=== PATIENT | female | born 1935 | race Caucasian/White ===

== ENCOUNTER 2017-02-21 12:21 | Observation (INO) | payer OTHER ==
[~2017-02-21] VITALS: Ht 142.2 cm; Wt 60.4 kg
[~2017-02-21 12:21] MED LIST: BACLOFEN10 MG; BACLOFEN10 MG PO; CRESTOR5 MG; FLORASTOR250 MG PO; HYDROCODON-ACE1 EACH; METOPROLOL SUCC50 MG; METOPROLOL SUCC50 MG PO; NITROFURANTOIN100 M3 PO; PANTOPRAZOLE SO40 MG PO; ZANTAC 7575 MG PO
[2017-02-21 13:13] LABS: HEMATOCRIT 32.3 % (36.0-46.0); MCH 32.7 PG (29.0-34.0); MCHC 33.1 G/DL (30.0-36.0); MCV 98.8 FL (83-99); MEAN PLAT.VOLUME 11.6 uM^3 (9.5-12.4); NRBC (%) 0.5 /100 WBC (0-0); PLATELET COUNT 285 K/uL (156-360); RBC DIS.WIDTH-CV 16.2 % (11.8-14.6); RBC DIS.WIDTH-SD 58.4 % (39-53); RED BLOOD COUNT 3.27 M/uL (3.80-5.20)
[2017-02-21 13:23] LABS: CHLORIDE 103 mEq/L (99-109); POTASSIUM 3.9 mEq/L (3.7-5.4); SODIUM 139 mEq/L (136-147)
[2017-02-21 13:25] LABS: GLUCOSE 155 mg/dL (70-99)
[2017-02-21 13:26] LABS: ANION GAP 9 MEQ/L (2-14)
[2017-02-21 13:27] LABS: TOTAL BILIRUBIN 0.6 mg/dL (0.0-1.0)
[2017-02-21 13:28] LABS: ALKALINE PHOSPHATASE 54 IU/L (3-129)
[2017-02-21 13:29] LABS: GFR ESTIMATE (CALCULATED) > 59 mL/min/
[2017-02-21 13:30] LABS: UREA NITROGEN (BUN) 14 mg/dL (9-23)
[2017-02-21 15:34] LABS: ADD MIUA? YES; BILIRUBIN NEGATIVE; BLOOD NEGATIVE; COLOR YELLOW ((YELLOW)); GLUCOSE (STRIP) NEGATIVE; KETONES NEGATIVE; LEUKOCYTES TRACE; NITRITE NEGATIVE; PROTEIN (STRIP) NEGATIVE; SPECIFIC GRAVITY 1.023 (1.000-1.030); UROBILINOGEN 0.2 MG/DL (0.2-1.0)
[2017-02-21 15:37] LABS: TROP-I INTERPRETATION NEGATIVE; TROPONIN-I < 0.01 ng/mL (0.0-0.30)
[2017-02-21 15:53] LABS: BACTERIA RARE /HPF; EPITHELIAL CELLS RARE /HPF; HYALINE CASTS 0-5 /LPF; MUCUS 3+ /LPF; RED BLOOD CELLS 0-5 /HPF (0-5); UCUL ADDED? NO; WHITE BLOOD CELLS 0-5 /HPF (0-5)
[2017-02-21] MEDS ORDERED: FOLIC ACID1 MG PO (18:27)
[2017-02-21] MEDS ORDERED: B-121000 MC2 PO (18:28)
[2017-02-21] MEDS ORDERED: PROBIOTIC1 EAC2 PO (18:29)
[2017-02-21] MEDS ORDERED: HYDROCODON-ACE1 EAC8 PO (18:30)
[2017-02-21] MEDS ORDERED: ZANTAC300 MG PO (18:30)
[2017-02-21] MEDS ORDERED: KLONOPIN0.5 M1 PO (18:30)
[2017-02-21] MEDS ORDERED: VITAMIN D22000 UNIT PO (18:31)
[2017-02-21] MEDS ORDERED: CALTRATE PLUS1 EACH PO (18:31)
[2017-02-21 18:51] LABS: TROP-I INTERPRETATION NEGATIVE; TROPONIN-I < 0.01 ng/mL (0.0-0.30)
[2017-02-21 21:00] VITALS: BP 189/75
[2017-02-22 00:41] VITALS: BP 146/69
[2017-02-22 01:28] LABS: TROP-I INTERPRETATION NEGATIVE; TROPONIN-I < 0.01 ng/mL (0.0-0.30)
[2017-02-22 04:30] VITALS: BP 110/56
[2017-02-22 05:55] LABS: HEMATOCRIT 29.9 % (36.0-46.0); MCH 33.7 PG (29.0-34.0); MCHC 33.8 G/DL (30.0-36.0); MCV 99.7 FL (83-99); MEAN PLAT.VOLUME 11.5 uM^3 (9.5-12.4); NRBC (%) 0.3 /100 WBC (0-0); PLATELET COUNT 271 K/uL (156-360); RBC DIS.WIDTH-CV 16.6 % (11.8-14.6); RBC DIS.WIDTH-SD 59.7 % (39-53); WHITE BLOOD COUNT 6.6 K/uL (4.1-10.2)
[2017-02-22 06:27] LABS: ALKALINE PHOSPHATASE 44 IU/L (3-129); ANION GAP 7 MEQ/L (2-14); CHLORIDE 105 MEQ/L (99-109); GFR ESTIMATE (CALCULATED) > 59 mL/min/; POTASSIUM 4.1 MEQ/L (3.7-5.4); SAMPLE HEMOLYSIS CHECK 0; SAMPLE ICTERIC CHECK 0; SAMPLE LIPEMIA CHECK 0; SODIUM 141 MEQ/L (136-147); TOTAL BILIRUBIN 0.6 MG/DL (0.0-1.0); UREA NITROGEN (BUN) 11 mg/dL (9-23)
[2017-02-22 06:32] LABS: GLUCOSE 99 mg/dL (70-99)
[2017-02-22 09:00] VITALS: BP 151/74
== END 2017-02-22 10:46 | disposition home or self-care (01) ==
LOC: EME 12:21 → 5WEST 19:39 → EDOF 19:39 → ENRESERV 19:46 → 5WEST 20:48
PROVIDERS: Internal Medicine; Physician Assistant
DX: R10.32 Left lower quadrant pain (principal); R07.89 Other chest pain; K57.30 Diverticulosis of large intestine without perforation or abscess without bleeding; I10 Essential (primary) hypertension; G89.29 Other chronic pain; M54.5 Low back pain; K44.9 Diaphragmatic hernia without obstruction or gangrene; M19.90 Unspecified osteoarthritis, unspecified site; Z87.891 Personal history of nicotine dependence; D46.9 Myelodysplastic syndrome, unspecified; E11.9 Type 2 diabetes mellitus without complications; G25.0 Essential tremor; K21.9 Gastro-esophageal reflux disease without esophagitis; E78.5 Hyperlipidemia, unspecified; Z82.49 Family history of ischemic heart disease and other diseases of the circulatory system; Z88.0 Allergy status to penicillin; Z88.8 Allergy status to other drugs, medicaments and biological substances; Z91.09 Other allergy status, other than to drugs and biological substances
CPT/HCPCS: 71275; 74174; 80053; 81003; 84484; 85027; 93005; 99281; 99285; G0378; J1644; J7030

== ENCOUNTER 2017-12-17 20:01 | Inpatient (IN) | payer OTHER ==
[~2017-12-17] VITALS: Ht 142.2 cm; Wt 50.2 kg
[~2017-12-17 20:01] MED LIST changes: +B-121000 MC2 PO; +CALTRATE PLUS1 EACH PO; +FOLIC ACID1 MG PO; +HYDROCODON-ACE1 EAC8 PO; +KLONOPIN0.5 M1 PO; +PROBIOTIC1 EAC2 PO; +VITAMIN D22000 UNIT PO; +ZANTAC300 MG PO
[2017-12-17 20:53] LABS: BASOPHIL (%) 0.6 % (0-1); EOSINOPHIL (%) 2.5 % (0-5); EOSINOPHIL COUNT 0.2 K/uL (0-0.3); HEMATOCRIT 30.5 % (36.0-46.0); HEMOGLOBIN 10.6 G/DL (11.9-15.5); IMMATURE GRANULOCYTE (%) 0.3 % (0.0-0.7); LYMPHOCYTE (%) 24.6 % (15-42); LYMPHOCYTE COUNT 1.8 K/uL (1.0-2.8); MCH 33.9 PG (29.0-34.0); MCHC 34.8 G/DL (30.0-36.0); MCV 97.4 FL (83-99); MONOCYTE (%) 9.7 % (3-12); MONOCYTE COUNT 0.7 K/uL (0-0.8); NEUTROPHIL (%) 62.3 % (45-76); NEUTROPHIL COUNT 4.5 K/uL (1.8-6.4); NRBC (%) 0.6 /100 WBC (0-0); PLATELET COUNT 302 K/uL (156-360); RBC DIS.WIDTH-CV 17.2 % (11.8-14.6); RBC DIS.WIDTH-SD 61.4 % (39-53); RED BLOOD COUNT 3.13 M/uL (3.80-5.20); WHITE BLOOD COUNT 7.2 K/uL (4.1-10.2)
[2017-12-17 21:03] LABS: ALBUMIN 4.4 g/dL (3.2-4.8); CHLORIDE 101 mEq/L (99-109); POTASSIUM 3.9 mEq/L (3.7-5.4); SODIUM 141 mEq/L (136-147)
[2017-12-17 21:05] LABS: GLUCOSE 109 mg/dL (70-99); TOTAL PROTEIN 7.1 g/dL (6.4-8.3)
[2017-12-17 21:07] LABS: TOTAL BILIRUBIN 0.7 mg/dL (0.0-1.0)
[2017-12-17 21:09] LABS: ALKALINE PHOSPHATASE 55 IU/L (3-129); CREATININE 0.8 mg/dL (0.6-1.3); GFR ESTIMATE (CALCULATED) > 59 mL/min/
[2017-12-17 21:10] LABS: AST (GOT) 19 IU/L (2-34); UREA NITROGEN (BUN) 13 mg/dL (9-23)
[2017-12-17 21:12] LABS: ALT (GPT) 16 IU/L (3-49); LIPASE 25 U/L (1.0-51.0)
[2017-12-17 21:18] LABS: TROP-I INTERPRETATION NEGATIVE; TROPONIN-I < 0.01 ng/mL (0.0-0.30)
[2017-12-17 22:46] LABS: APPEARANCE CLEAR ((CLEAR)); BILIRUBIN NEGATIVE; BLOOD NEGATIVE; COLOR STRAW ((YELLOW)); GLUCOSE (STRIP) NEGATIVE; KETONES NEGATIVE; LEUKOCYTES NEGATIVE; NITRITE NEGATIVE; PROTEIN (STRIP) NEGATIVE; UCUL ADDED? NO; UROBILINOGEN 0.2 MG/DL (0.2-1.0)
[2017-12-18 02:54] LABS: PTT 29.4 SEC (25-37)
[2017-12-18 06:22] VITALS: BP 161/72
[2017-12-18 07:05] LABS: HEMATOCRIT 27.3 % (36.0-46.0); HEMOGLOBIN 9.1 G/DL (11.9-15.5); MCH 33.6 PG (29.0-34.0); MCHC 33.3 G/DL (30.0-36.0); MCV 100.7 FL (83-99); PLATELET COUNT 276 K/uL (156-360); RBC DIS.WIDTH-CV 17.5 % (11.8-14.6); RBC DIS.WIDTH-SD 63.5 % (39-53); RED BLOOD COUNT 2.71 M/uL (3.80-5.20); WHITE BLOOD COUNT 9.4 K/uL (4.1-10.2)
[2017-12-18 15:58] VITALS: BP 128/60
[2017-12-18 19:20] VITALS: BP 129/59
[2017-12-18 23:27] VITALS: BP 131/60
[2017-12-19 03:11] VITALS: BP 137/62
[2017-12-19 06:50] LABS: ALBUMIN 3.5 G/DL (3.2-4.8); ALKALINE PHOSPHATASE 39 IU/L (3-129); ALT (GPT) 8 IU/L (3-49); AST (GOT) 13 IU/L (2-34); CHLORIDE 107 MEQ/L (99-109); CREATININE 0.5 MG/DL (0.6-1.3); GFR ESTIMATE (CALCULATED) > 59 mL/min/; GLUCOSE 96 mg/dL (70-99); POTASSIUM 4.2 MEQ/L (3.7-5.4); SODIUM 141 MEQ/L (136-147); TOTAL BILIRUBIN 0.6 MG/DL (0.0-1.0); TOTAL PROTEIN 5.1 G/DL (6.4-8.3); UREA NITROGEN (BUN) 6 mg/dL (9-23)
[2017-12-19 07:56] VITALS: BP 132/58
[2017-12-19] MEDS ORDERED: LORTAB 5-325 M1 EACH PO (09:02)
== END 2017-12-19 11:04 | disposition home or self-care (01) | DRG 352 ==
LOC: EME 20:01 → 3EAST 12-18 04:50 → EDOF 12-18 04:50 → ENRESERV 12-18 04:57 → 3EAST 12-18 06:09
PROVIDERS: Emergency Medicine; Hospitalist
PROC: 0YU80JZ Supplement Left Femoral Region with Synthetic Substitute, Open Approach (ICD-10-PCS; principal; 2017-12-18)
DX: K41.30 Unilateral femoral hernia, with obstruction, without gangrene, not specified as recurrent (principal); I10 Essential (primary) hypertension; K21.9 Gastro-esophageal reflux disease without esophagitis; E78.5 Hyperlipidemia, unspecified; G89.29 Other chronic pain; K44.9 Diaphragmatic hernia without obstruction or gangrene; K57.90 Diverticulosis of intestine, part unspecified, without perforation or abscess without bleeding; M19.90 Unspecified osteoarthritis, unspecified site; M54.30 Sciatica, unspecified side; Z90.710 Acquired absence of both cervix and uterus; Z87.891 Personal history of nicotine dependence; Z88.0 Allergy status to penicillin; Z88.1 Allergy status to other antibiotic agents; Z88.2 Allergy status to sulfonamides
CPT/HCPCS: 71045; 74177; 80053; 81003; 83605; 83690; 84484; 85025; 85027; 85610; 85730; 93005; 94799; C1781; J0690; J1170; J1885; J2270; J2405; J2710; J3010; J7030; J7040; J7643; S0028